=== PATIENT | female | born 1935 | race Caucasian/White ===

== ENCOUNTER → 2021-10-22 | Outpatient (CLI) | payer MEDICARE, BC | LOC: EXRD 10:07 | DX: D72.829 Elevated white blood cell count, unspecified (principal) | CPT/HCPCS: 71046 ==

== ENCOUNTER → 2022-03-07 | Outpatient (CLI) | payer MEDICARE, BC | LOC: HEART 5 08:34 | DX: R07.9 Chest pain, unspecified (principal); R06.00 Dyspnea, unspecified; M25.512 Pain in left shoulder; I49.3 Ventricular premature depolarization | CPT/HCPCS: 78452; A9502; J2785 ==

== ENCOUNTER → 2022-04-17 | Outpatient (CLI) | payer MEDICARE, BC | LOC: HEART 5 09:15 | DX: R06.00 Dyspnea, unspecified (principal); R06.02 Shortness of breath; I08.8 Other rheumatic multiple valve diseases | CPT/HCPCS: 93306 ==